=== PATIENT | female | born 1960 | race Caucasian/White ===

== ENCOUNTER → 2020-12-03 | Outpatient (CLI) | payer OTHER | LOC: M.CT 14:09 | PROVIDERS: ATTEND Family Medicine | DX: Z13.6 Encounter for screening for cardiovascular disorders (principal); I25.10 Atherosclerotic heart disease of native coronary artery without angina pectoris ==

== ENCOUNTER → 2021-01-13 | Outpatient (CLI) | payer OTHER | LOC: M.ULTRA 07:18 | PROVIDERS: ATTEND Family Medicine | DX: I10 Essential (primary) hypertension (principal); Z88.0 Allergy status to penicillin ==

== ENCOUNTER → 2021-04-23 | Outpatient (CLI) | payer OTHER | LOC: M.MRI 06:58 | PROVIDERS: ATTEND Family Medicine | DX: G45.9 Transient cerebral ischemic attack, unspecified (principal); R26.89 Other abnormalities of gait and mobility; R53.1 Weakness; I10 Essential (primary) hypertension; E78.2 Mixed hyperlipidemia ==